=== PATIENT | male | born 1945 | race Caucasian/White ===

== ENCOUNTER → 2021-02-11 10:31 | Outpatient (BNVA) | payer MEDICARE, SELFPAY | PROVIDERS: PCP Family Medicine; Visit Provider Internal Medicine Rheumatology | DX: M15.9 Polyosteoarthritis, unspecified (principal); Z79.899 Other long term (current) drug therapy; Z11.59 Encounter for screening for other viral diseases; Z11.1 Encounter for screening for respiratory tuberculosis; G57.12 Meralgia paresthetica, left lower limb; M19.90 Unspecified osteoarthritis, unspecified site | CPT/HCPCS: 36415; 71046; 72040; 72100; 72170; 73130; 73630; 86480; 86704; 86803; 87340; 99204 ==

== ENCOUNTER 2021-02-11 13:43 | Outpatient (CLI) | payer MEDICARE, SELFPAY ==
--- NOTE | 2021-02-11 13:58 | XRR_ITS ---
PROCEDURE INFORMATION: Exam: XR Right Foot Exam date and time: 02/11/2021 2:30 PM Age: 75 years old Clinical indication: Pain; Foot; Bilateral; Additional info: Z79.899 - other intermediate (current) drug therapy TECHNIQUE: Imaging protocol: XR Right foot. Views: Frontal, lateral, and oblique views. COMPARISON: No relevant prior studies available. FINDINGS: Bones/joints: Lateral 1st metatarsophalangeal joint mild articular marginal hypertrophy. A small os tibiale externum is present, a sometimes symptomatic normal variant. A large plantar calcaneal ossified spur is present. Soft tissues: Normal. Vasculature: Vascular calcifications are present. XR/XR foot RT min 3V* [id number] IMPRESSION: 1. Plantar calcaneal spur. 2. Primary first metatarsophalangeal osteoarthritis.
--- NOTE | 2021-02-11 13:58 | XRR_ITS ---
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 Views: AP single view. COMPARISON: No relevant prior studies available. FINDINGS: Bones/joints: No acute fracture. No destructive bony process identified. Right lower lumbar facet primary osteoarthritis. Soft tissues: Unremarkable. XR/XR pelvis 1-2V* [id number] IMPRESSION: No acute findings.
--- NOTE | 2021-02-11 13:58 | XRR_ITS ---
PROCEDURE INFORMATION: Exam: XR Right Hand Exam date and time: 02/11/2021 2:40 PM Age: 75 years old Clinical indication: Pain; Hand; Bilateral; Additional info: Z79.899 - other skilled nursing (current) drug therapy TECHNIQUE: Imaging protocol: XR Right hand. Views: Frontal, lateral, and oblique views. COMPARISON: No relevant prior studies available. FINDINGS: Bones/joints: Mild narrowing, subchondral sclerosis and medial marginal hypertrophy of the first carpometacarpal articulation with mild lateral subluxation of the first metacarpal. Trapezius scaphoid joint narrowing with subchondral sclerosis, slight medial subluxation of the trapezium-trapezoid with medial articular marginal hypertrophy. Lunate-capitate joint narrowing with subchondral sclerosis. Joint narrowing and dorsal medial marginal hypertrophy at the 2nd through 5th proximal interphalangeal joints. Mild dorsal articular marginal hypertrophy of the 1st interphalangeal joint. Soft tissues: Normal. Vasculature: Vascular calcifications are present. XR/XR hand RT min 3V* [id number] IMPRESSION: Primary osteoarthritis.
--- NOTE | 2021-02-11 13:58 | XRR_ITS ---
PROCEDURE INFORMATION: Exam: XR Lumbosacral Spine Exam date and time: 02/11/2021 1:58 PM Age: 75 years old Clinical indication: Screening exam; Z79.899 - other skilled nursing (current) drug therapy TECHNIQUE: Imaging protocol: XR of the lumbosacral spine. Views: 3 views. Other technique: AP, lateral and spot lateral views of the lumbar spine are submitted. COMPARISON: No relevant prior studies available. FINDINGS: Bones/joints: Bilateral L4-L5 and L5-S1 lumbar facet primary osteoarthritis. There is 5.3 mm anterolisthesis of L4 on L5 in the neutral position, with moderate degenerative disc narrowing and endplate sclerosis. Soft tissues: Unremarkable. Vasculature: Mild aortic atherosclerotic calcification without aneurysm. XR/XR lumbar spine 2-3V* [id number] IMPRESSION: 1. Bilateral lower lumbar facet primary osteoarthritis. 2. Grade 1 L4-5 degenerative type anterolisthesis.
--- NOTE | 2021-02-11 13:58 | XRR_ITS ---
PROCEDURE INFORMATION: Exam: XR Chest Exam date and time: 02/11/2021 2:21 PM Age: 75 years old Clinical indication: Screening exam; Other screening; Additional info: Z79.899 - other [facility] (current) drug therapy TECHNIQUE: Imaging protocol: XR of the chest Views: Frontal and lateral upright, 2 views. COMPARISON: No relevant prior studies available. FINDINGS: Lungs: The pulmonary vasculature is mildly congested. The lungs are otherwise peripherally clear bilaterally. Pleural spaces: No pleural effusion. No pneumothorax. Heart/Mediastinum: Borderline cardiomegaly. Bones/joints: Degenerative disk disease is present at mid-thoracic spine disk levels. XR/XR chest 2V* [id number] IMPRESSION: Mild pulmonary vascular congestion.
--- NOTE | 2021-02-11 13:58 | XRR_ITS ---
PROCEDURE INFORMATION: Exam: XR Left Hand Exam date and time: 02/11/2021 2:40 PM Age: 75 years old Clinical indication: Pain; Hand; Bilateral; Additional info: Z79.899 - other [facility] (current) drug therapy TECHNIQUE: Imaging protocol: XR Left hand. Views: Frontal, lateral, and oblique views. COMPARISON: No relevant prior studies available. FINDINGS: Bones/joints: There is narrowing, subchondral sclerosis, subchondral cyst formation of the first carpometacarpal articulation with lateral subluxation of the first metacarpal. Mild joint narrowing and marginal hypertrophy at the 2nd through 5th proximal interphalangeal joints. Dorsal lateral articular marginal hypertrophy of the 1st interphalangeal joint. Joint narrowing of the 2nd through 5th distal interphalangeal joints. Scaphoid-capitate and lunate-capitate joint narrowing with subchondral sclerosis. Soft tissues: Normal. XR/XR hand LT min 3V* [id number] IMPRESSION: Primary osteoarthritis.
--- NOTE | 2021-02-11 13:58 | XRR_ITS ---
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 Views: 3 views. Other technique: AP, lateral and AP open mouth odontoid views and a swimmer's lateral view of the cervical spine are submitted. COMPARISON: No relevant prior studies available. FINDINGS: Bones/joints: Moderate posterior C3-C4 disc narrowing, mild spondylosis. Bilateral C3-C4 and C4-C5 primary facet osteoarthritis. C5-6 and C6-7 degenerative disc disease with mild spondylosis. Soft tissues: Unremarkable. Other findings: Bilateral C5-C6 uncovertebral hypertrophy. XR/XR cervical spine 3V* [id number] IMPRESSION: 1. Degenerative changes as above. 2. No acute cervical spinal bony abnormality identified.
--- NOTE | 2021-02-11 13:58 | XRR_ITS ---
PROCEDURE INFORMATION: Exam: XR Left Foot Exam date and time: 02/11/2021 2:30 PM Age: 75 years old Clinical indication: Pain; Foot; Bilateral; Additional info: Z79.899 - other residential (current) drug therapy TECHNIQUE: Imaging protocol: XR Left foot. Views: Frontal, lateral, and oblique views. COMPARISON: No relevant prior studies available. FINDINGS: Bones/joints: A moderate plantar calcaneal ossified spur is present. Soft tissues: Normal. Vasculature: Vascular calcifications are present. XR/XR foot LT min 3V* [id number] IMPRESSION: Plantar calcaneal spur.
[2021-02-11 20:51] LABS: Hepatitis B Core AB, Total Non-Reactive (Nonreactive); Hepatitis B Surface Antigen Non-Reactive (Nonreactive); Hepatitis C Virus Antibody Non-Reactive (Nonreactive)
[2021-02-13 14:53] LABS: Quantiferon Mitogen 8.51 IU/mL; Quantiferon Nil 0.02 IU/mL; Quantiferon TB Gold NEGATIVE (NEGATIVE)
== END 2021-02-11 13:44 | disposition home or self-care (01) ==
PROVIDERS: PCP Family Medicine; Visit Provider Internal Medicine Rheumatology
DX: M19.90 Unspecified osteoarthritis, unspecified site (principal); Z11.59 Encounter for screening for other viral diseases; Z79.899 Other long term (current) drug therapy; Z11.1 Encounter for screening for respiratory tuberculosis
CPT/HCPCS: 36415; 71046; 72040; 72100; 72170; 73130; 73630; 86480; 86704; 86803; 87340

== ENCOUNTER → 2021-03-31 10:07 | Outpatient (BNVA) | payer MEDICARE, SELFPAY | PROVIDERS: PCP Family Medicine; Visit Provider Internal Medicine Rheumatology | DX: M19.041 Primary osteoarthritis, right hand (principal); M19.042 Primary osteoarthritis, left hand; M47.896 Other spondylosis, lumbar region; G57.12 Meralgia paresthetica, left lower limb; Z96.642 Presence of left artificial hip joint | CPT/HCPCS: 99213 ==